=== PATIENT | male | born 1960 | race Caucasian/White ===

== ENCOUNTER → 2017-11-06 | Outpatient (CLI) | payer OTHER ==
[~2017-11-06] MED LIST: CELE200C PO; CYCL-259 PO; DILT240C77 PO; GLUC15006 PO; HYDR-3307 PO; LORA1TAB PO; MULT-658 PO; SAW450CA7 PO
== END | disposition home or self-care (01) ==
LOC: STAR 12:34
PROVIDERS: ATTEND Orthopaedic Surgery
DX: Z02.9 Encounter for administrative examinations, unspecified (principal)

== ENCOUNTER 2017-11-18 06:47 | Day surgery (SDC) | payer OTHER ==
[~2017-11-18] VITALS: Ht 182.9 cm; Wt 94.6 kg
[2017-11-18] MEDS ORDERED: LACTATED RINGERS 1,000 ML IV SCH (07:11)
[2017-11-18] MEDS ORDERED: ACETAMINOPHEN 500 MG TABLET PO ONE (07:30)
[2017-11-18] MEDS ORDERED: GABAPENTIN 300 MG CAPSULE PO ONE (07:30)
[2017-11-18 07:40] VITALS: BP 131/85
[2017-11-18] MEDS ORDERED: BUPIVACAINE/PF-EPI 0.25% 1:200K ONE (08:05)
[2017-11-18] MEDS ORDERED: FENTANYL PF 250 MCG/5ML ONE (08:08)
[2017-11-18] MEDS ORDERED: MIDAZOLAM 1 MG/ML, 2ML ONE (08:08)
[2017-11-18] MEDS ORDERED: GLYCOPYRROLATE 0.2MG/1ML, 5ML ONE (09:41)
[2017-11-18] MEDS ORDERED: ROCURONIUM 10MG/ML,5ML ONE (09:41)
[2017-11-18] MEDS ORDERED: NEOSTIGMINE 1 MG/ML, 10ML ONE (09:41)
[2017-11-18] MEDS ORDERED: ONDANSETRON 2MG/ML, 2ML ONE (09:41)
[2017-11-18] MEDS ORDERED: PROPOFOL 10 MG/ML, 20ML ONE (09:41)
[2017-11-18] MEDS ORDERED: CEFAZOLIN 1,000 MG ONE (09:41)
[2017-11-18] MEDS ORDERED: DEXAMETHASONE 4 MG/ML, 1ML ONE (09:41)
[2017-11-18] MEDS ORDERED: SUCCINYLCHOLINE 20 MG/ML, 10ML ONE (09:41)
[2017-11-18] MEDS ORDERED: FENTANYL PF 100 MCG/2ML IV PRN (10:00)
[2017-11-18] MEDS ORDERED: DIPHENHYDRAMINE 50 MG/ML, 1ML IVPush PRN (10:00)
[2017-11-18] MEDS ORDERED: HYDROmorphone 1 MG/ML, 1ML IV PRN (10:00)
[2017-11-18] MEDS ORDERED: PROCHLORPERAZINE 5 MG/ML, 2ML IV PRN (10:00)
[2017-11-18] MEDS ORDERED: OXYcodone 5 MG/5 ML ORAL.SOL UDC PO PRN (10:00)
[2017-11-18] MEDS ORDERED: MEPERIDINE/PF 25MG/0.5ML IVPush PRN (10:00)
[2017-11-18] MEDS ORDERED: LABETALOL 5MG/ML, 20ML IV PRN (10:00)
== END 2017-11-18 14:00 | disposition home or self-care (01) ==
LOC: OUT 06:47
PROVIDERS: ATTEND Orthopaedic Surgery
DX: S43.431A Superior glenoid labrum lesion of right shoulder, initial encounter (principal); M94.211 Chondromalacia, right shoulder; M75.111 Incomplete rotator cuff tear or rupture of right shoulder, not specified as traumatic; X58.XXXA Exposure to other specified factors, initial encounter; Y93.89 Activity, other specified; Y92.89 Other specified places as the place of occurrence of the external cause; Y99.8 Other external cause status; I10 Essential (primary) hypertension; Z79.899 Other long term (current) drug therapy; Z98.890 Other specified postprocedural states
CPT/HCPCS: J0690; J1100; J2250; J2405; J2704; J2710; J3010; J3490; C1713; C1762; J0330; J7120

== ENCOUNTER 2019-03-01 07:43 | Outpatient (CLI) | payer BC ==
[~2019-03-01 07:43] MED LIST changes: -HYDR-3307 PO; +HYDR-36 PO
== END 2019-03-01 23:59 | disposition home or self-care (01) ==
LOC: CFH 07:43
PROVIDERS: ATTEND Internal Medicine Cardiovascular Disease
DX: I34.0 Nonrheumatic mitral (valve) insufficiency (principal); I49.9 Cardiac arrhythmia, unspecified; I10 Essential (primary) hypertension
CPT/HCPCS: 93306